=== PATIENT | female | born 1965 | race Caucasian/White ===

== ENCOUNTER 2018-07-23 17:25 | Emergency (ER) | payer OTHER, SELFPAY ==
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
[2018-07-23 17:31] VITALS: BP 119/74; PULSE 82; RESP 20; TEMP 36.9; O2SAT 97; BMI 36.6
[2018-07-23 18:10] VITALS: BP 111/69; PULSE 70
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
[2018-07-23] MEDS: IBUPROFEN 400 MG TABLET 800 MG PO (18:22)
== END 2018-07-23 18:46 | disposition home or self-care (01) ==
PROVIDERS: Emergency Provider Emergency Medicine
DX: R51 Headache (principal); V49.9XXA Car occupant (driver) (passenger) injured in unspecified traffic accident, initial encounter
CPT/HCPCS: 70450; 72125; 99282; 99284